=== PATIENT | male | born 1930 | race Two or more races ===

== ENCOUNTER 2019-10-12 04:15 | Inpatient (IN) | payer OTHER ==
[~2019-10-12] VITALS: Ht 188 cm; Wt 77.1 kg
== END 2019-10-22 10:29 | disposition expired | DRG 469 ==
LOC: ER 04:15 → SURH 11:39 → ICU 10-15 02:29 → SURH 10-21 13:11 → ICU 10-22 08:15
PROVIDERS: ADMIT Orthopaedic Surgery
PROC: 0SRR01Z Replacement of Right Hip Joint, Femoral Surface with Metal Synthetic Substitute, Open Approach (ICD-10-PCS; principal; 2019-10-12)
PROC: 0MTL0ZZ Resection of Right Hip Bursa and Ligament, Open Approach (ICD-10-PCS; 2019-10-12)
PROC: 0QU60JZ Supplement Right Upper Femur with Synthetic Substitute, Open Approach (ICD-10-PCS; 2019-10-12)
PROC: 4A12X4Z Monitoring of Cardiac Electrical Activity, External Approach (ICD-10-PCS; 2019-10-13)
PROC: 4A033R1 Measurement of Arterial Saturation, Peripheral, Percutaneous Approach (ICD-10-PCS; 2019-10-14)
PROC: 3E0F7GC Introduction of Other Therapeutic Substance into Respiratory Tract, Via Natural or Artificial Opening (ICD-10-PCS; 2019-10-14)
PROC: BB24Y0Z Computerized Tomography (CT Scan) of Bilateral Lungs using Other Contrast, Unenhanced and Enhanced (ICD-10-PCS; 2019-10-14)
PROC: B32TYZZ Computerized Tomography (CT Scan) of Left Pulmonary Artery using Other Contrast (ICD-10-PCS; 2019-10-14)
PROC: B32SYZZ Computerized Tomography (CT Scan) of Right Pulmonary Artery using Other Contrast (ICD-10-PCS; 2019-10-14)
PROC: B246ZZZ Ultrasonography of Right and Left Heart (ICD-10-PCS; 2019-10-14)
PROC: 05HB33Z Insertion of Infusion Device into Right Basilic Vein, Percutaneous Approach (ICD-10-PCS; 2019-10-15)
PROC: BW40ZZZ Ultrasonography of Abdomen (ICD-10-PCS; 2019-10-15)
PROC: 0BH17EZ Insertion of Endotracheal Airway into Trachea, Via Natural or Artificial Opening (ICD-10-PCS; 2019-10-22)
PROC: 5A1945Z Respiratory Ventilation, 24-96 Consecutive Hours (ICD-10-PCS; 2019-10-22)
DX: S72.041A Displaced fracture of base of neck of right femur, initial encounter for closed fracture (principal); B37.1 Pulmonary candidiasis; I50.21 Acute systolic (congestive) heart failure; J95.821 Acute postprocedural respiratory failure; I31.3 Pericardial effusion (noninflammatory); J91.8 Pleural effusion in other conditions classified elsewhere; D58.8 Other specified hereditary hemolytic anemias; L03.116 Cellulitis of left lower limb; L03.115 Cellulitis of right lower limb; D62 Acute posthemorrhagic anemia; I97.131 Postprocedural heart failure following other surgery; I97.191 Other postprocedural cardiac functional disturbances following other surgery; J95.89 Other postprocedural complications and disorders of respiratory system, not elsewhere classified; E27.3 Drug-induced adrenocortical insufficiency; J44.1 Chronic obstructive pulmonary disease with (acute) exacerbation; M16.11 Unilateral primary osteoarthritis, right hip; M81.0 Age-related osteoporosis without current pathological fracture; M70.61 Trochanteric bursitis, right hip; I34.0 Nonrheumatic mitral (valve) insufficiency; I35.1 Nonrheumatic aortic (valve) insufficiency; I35.0 Nonrheumatic aortic (valve) stenosis; I07.1 Rheumatic tricuspid insufficiency; I71.2 Thoracic aortic aneurysm, without rupture; N40.0 Benign prostatic hyperplasia without lower urinary tract symptoms; K80.20 Calculus of gallbladder without cholecystitis without obstruction; J84.112 Idiopathic pulmonary fibrosis; R16.1 Splenomegaly, not elsewhere classified; I95.81 Postprocedural hypotension; I48.0 Paroxysmal atrial fibrillation; W18.09XA Striking against other object with subsequent fall, initial encounter; T50.995A Adverse effect of other drugs, medicaments and biological substances, initial encounter; Y92.238 Other place in hospital as the place of occurrence of the external cause; Y93.89 Activity, other specified; Y92.092 Bedroom in other non-institutional residence as the place of occurrence of the external cause; Y99.8 Other external cause status
CPT/HCPCS: 71275